=== PATIENT | female | born 1945 | race Caucasian/White ===

== ENCOUNTER 2021-02-04 13:20 | Outpatient (CLI) | payer MEDICARE, OTHER, SELFPAY ==
--- NOTE | 2021-02-04 13:37 | CT_ITS ---
WS: [id number] CT CHEST TECHNIQUE: Noncontrast CT of the chest with coronal and sagittal reformatted images. CLINICAL INFORMATION: LUNG NODULES MULTIPLE COMPARISON: CT chest October 04, 2018 and DLP: 523.[address] scans at [facility] use at least one of these dose optimization techniques: automat ed exposure control; mA and/or kV adjustment per patient size (includes targeted exams where dose is matched to clinical indication); or iterative reconstruction. FINDINGS: Multiple noncalcified pulmonary nodules in both lower lobes and right middle lobe. Largest nodule left lower lobe measuring 5.6 mm slightly enlarged compared to previous where it measured 3.8 mm. Recommend 12 month follow-up. Mild chronic emphysematous changes. No acute pulmonary infiltrates. No focal pneumonia or pleural flu id. Subsegmental atelectasis right lower lobe. No mediastinal or hilar lymphadenopathy. Large esophag eal hiatal hernia. Aortic calcification. Coronary calcification. No mediastinal or hilar lymphadenopa thy. No axillary lymphadenopathy. Right posterior thyroid nodule measuring 1.9 x 1.4 CM. Normal thoracic spine. Adrenal glands are normal. CT/CT chest wo con [id number] IMPRESSION: 1. Multiple noncalcified pulmonary nodules in both lower lobes and right middl e lobe. Largest nodule left lower lobe measuring 5.6 mm slightly enlarged alisa red to previous where it measured 3.8 mm. Recommend 12 month follow-up. 2. Large esophageal hiatal hernia unchanged. 3. Right posterior thyroid nodule measuring 1.9 x 1.4 Cm. This can be further evaluated with ultrasound.
== END 2021-02-04 13:21 | disposition home or self-care (01) ==
LOC: RADWPI 13:28
PROVIDERS: PCP Family Medicine; Visit Provider Nurse Practitioner Family
DX: R91.8 Other nonspecific abnormal finding of lung field (principal); K44.9 Diaphragmatic hernia without obstruction or gangrene; E04.1 Nontoxic single thyroid nodule
CPT/HCPCS: 71250

== ENCOUNTER 2021-04-07 12:44 | Outpatient (CLI) | payer MEDICARE, OTHER, SELFPAY ==
--- NOTE | 2021-04-07 12:50 | US_ITS ---
WS: [id number] ULTRASOUND THYROID TECHNIQUE: Ultrasound of the thyroid. CLINICAL INFORMATION: THYROID NODULE COMPARISON: CT neck [id number] 018 FINDINGS: Thyroid: Echogenic right lower lobe thyroid nodule measures approximately 2.8 x 2.2 x 1.4 cm with a h ypoechoic halo. Associated internal vascularity. Small amount of associated internal heterogeneity or cystic change.Recommend further evaluation with thyroid FNA. Minimal left thyroid tissue. No other visualized nodules. Right thyroid lobe: 4.6 cm x 1.9 cm x 1.7 cm Left thyroid lobe: 2.2 cm x 0.6 cm x 0.9 cm. Isthmus: 0.3 mm. Cervical lymphadenopathy: None. US/US thyroid [id number] IMPRESSION: 1. Echogenic right lower pole thyroid nodule measuring 2.8 2.2 x 1.4 cm with a hypoechoic halo has a suspicious appearance. Recommend further evaluation wit h FNA. 2. Small amount of left-sided thyroid tissue. No other visualized thyroid nodu les.
== END 2021-04-07 12:45 | disposition home or self-care (01) ==
LOC: US 12:47
PROVIDERS: PCP Family Medicine; Visit Provider Nurse Practitioner Family
DX: E04.1 Nontoxic single thyroid nodule (principal)
CPT/HCPCS: 76536

== ENCOUNTER 2021-04-30 12:18 | Outpatient (CLI) | payer MEDICARE, OTHER, SELFPAY ==
--- NOTE | 2021-04-30 12:29 | US_ITS ---
WS: [id number] ULTRASOUND-GUIDED RIGHT THYROID NODULE FNA HISTORY: THYROID MASS Procedure, risks, and complications were explained to the patient. Consent has been obtained. Comparison: 04/07/2021. The skin is cleansed with ChloraPrep and anesthetized with 1% buffered lidocaine. FNA performed with 25 gauge needles. electroneurodiagnostic technologist is present to fix slides. No bleeding or complications d uring the procedure. US/US biopsy thyroid [id number] IMPRESSION: Uncomplicated FNA of a RIGHT hyperechoic thyroid nodule. Final pathology result s pending.
== END 2021-04-30 12:19 | disposition home or self-care (01) ==
LOC: RAD 12:26
PROVIDERS: PCP Family Medicine; Visit Provider Nurse Practitioner Family
DX: E07.89 Other specified disorders of thyroid (principal)
CPT/HCPCS: 10005; 88173; 88305

== ENCOUNTER 2021-05-17 08:00 | Outpatient (CLI) | payer MEDICARE, OTHER, SELFPAY ==
--- NOTE | 2021-05-17 08:06 | MM_ITS ---
WS: [id number] BILATERAL SCREENING DIGITAL MAMMOGRAM WITH CAD HISTORY: SCREENING COMPARISON: 02/12/2018 and 12/17/2015 Bilateral CC and MLO views submitted. Computer aided detection analyzed. Breast composition: There are scattered areas of fibroglandular density. No suspicious masses, microc alcifications or architectural distortion. Stable millimeters nodule upper outer quadrant RIGHT breas t. MM/[place] [id number] IMPRESSION: BI-RADS: 2-Benign FOLLOW UP: 1 Year Follow-up
--- NOTE | 2021-05-17 08:32 | XR_ITS ---
WS: [id number] DEXA (DUAL ENERGY X-RAY ABSORPTIOMETRY) Bone mineral density was performed using a [employer] machine. HISTORY: OSTEOPOROSIS WITHOUT CURRENT PATHOLOGICAL FRACTURE COMPARISON: 10/04/2018 Lumbar spine BMD (L1-L4): 0.830 g/cm2 T score: -2.9 Z score: -0.7 Total hip BMD: Left: 0.621 g/cm2. T score: -3.1 Z score: -1.1 Right: 0.607 g/cm2. T score: -3.2 Z score: -1.2 10 year probability of a major osteoporotic fracture is 21%. Compared to the prior study from 10/04/2018. Lumbar spine bone mineral density has decreased by 3.2%. Bilateral hips bone mineral density has decreased by 7.7%. XR/XR DEXA axial skeleton* [id number] IMPRESSION: OSTEOPOROSIS based upon the WHO classification for females. There has been a si gnificant decrease in bone mineral density in the lumbar spine and hips since t he prior study.
== END 2021-05-17 08:01 | disposition home or self-care (01) ==
LOC: RADSHAW 08:05
PROVIDERS: PCP Nurse Practitioner Family; Visit Provider Nurse Practitioner Family
DX: Z12.31 Encounter for screening mammogram for malignant neoplasm of breast (principal); M81.0 Age-related osteoporosis without current pathological fracture
CPT/HCPCS: 77067; 77080

== ENCOUNTER → 2022-05-06 11:53 | Outpatient (BNVA) | payer MEDICARE, OTHER, SELFPAY | PROVIDERS: PCP Family Medicine; Visit Provider Family Medicine | DX: E78.5 Hyperlipidemia, unspecified (principal); I10 Essential (primary) hypertension; E03.9 Hypothyroidism, unspecified; M81.0 Age-related osteoporosis without current pathological fracture; Z12.39 Encounter for other screening for malignant neoplasm of breast | CPT/HCPCS: 80053; 80061; 84443 ==

== ENCOUNTER 2022-05-20 10:26 | Outpatient (CLI) | payer MEDICARE, OTHER, SELFPAY ==
--- NOTE | 2022-05-20 10:33 | MM_ITS ---
WS: [id number] BILATERAL SCREENING DIGITAL TOMOSYNTHESIS MAMMOGRAM WITH CAD HISTORY: breast cancer screening COMPARISON: 05/17/2021 and 02/12/2018 Bilateral CC and MLO views with tomosynthesis and synthetic mammography submitted. Computer aided det ection analyzed. Breast composition: There are scattered areas of fibroglandular density. No suspicious masses, microc alcifications or architectural distortion. Bilateral breast arterial calcifications. MM/[place] [id number] IMPRESSION: BI-RADS: 2-Benign FOLLOW UP: 1 Year Follow-up
== END 2022-05-20 10:27 | disposition home or self-care (01) ==
LOC: RAD 10:26
PROVIDERS: PCP Family Medicine; Visit Provider Family Medicine
DX: Z12.31 Encounter for screening mammogram for malignant neoplasm of breast (principal)
CPT/HCPCS: 77063; 77067

== ENCOUNTER 2022-06-13 13:47 | Outpatient (CLI) | payer MEDICARE, OTHER, SELFPAY ==
--- NOTE | 2022-06-13 13:30 | XR_ITS ---
WS: [id number] SCREENING DEXA SCAN [facility] CLINICAL INFORMATION: med management COMPARISON: May 17, 2021 FINDINGS: The L1-L4 bone mineral density measures 0.848 g/cm2. This corresponds to a T score score of -2.8 and Z score of -0.6. Left femoral neck bone mineral density measures 0.643 g/cm2. This corresponds to a T score of -2.9 an d Z score of -0.9. Right femoral neck bone mineral density measures 0.612 g/cm2. This corresponds to a T score -3.1of an d Z score of -1.1. Mean femoral neck bone mineral density measures 0.627 g/cm2. This corresponds to a T score of -3.0 an d Z score of -1.0. XR/XR DEXA axial skeleton* [id number] IMPRESSION: Osteoporosis lumbar spine. Osteoporosis femoral necks. Patient's FRAX calculated 10 year probability for major osteoporotic fracture i s 28.5 % and osteoporotic hip fracture is 10.6%. Bone mineralization in the lumbar spine has increased 2.2% since 2020 Bone mineralization femoral necks has increased 2.1% since 2020
== END 2022-06-13 13:48 | disposition home or self-care (01) ==
LOC: RAD 13:48
PROVIDERS: PCP Family Medicine; Visit Provider Family Medicine
DX: M81.0 Age-related osteoporosis without current pathological fracture (principal)
CPT/HCPCS: 77080

== ENCOUNTER → 2022-07-07 11:47 | Outpatient (BNVA) | payer MEDICARE, OTHER, SELFPAY | PROVIDERS: PCP Family Medicine; Visit Provider Family Medicine | DX: E03.9 Hypothyroidism, unspecified (principal) | CPT/HCPCS: 84439; 84443; 84481 ==

== ENCOUNTER 2022-12-02 12:51 | Outpatient (CLI) | payer MEDICARE, OTHER, SELFPAY ==
--- NOTE | 2022-12-02 13:00 | CT_ITS ---
WS: [id number] CT chest wo con [id number] HISTORY: lung nodule f/u TECHNIQUE: Axial imaging performed through the thorax. Coronal and sagittal reformats are submitted. All CT scans at [facility] use at least one of these dose optimization techniques: automated exposure control; mA and/or kV adjustment per patient size (includes targeted exams where dose is mat ched to clinical indication); or iterative reconstruction. CONTRAST: None DLP: 151.71 mGy.cm COMPARISON: 02/04/2021 Lungs and central airway: Chronic emphysema. No new or increasing size of pulmonary nodules. The larg est pulmonary nodule is 5 mm at the LEFT lung base which is stable over multiple prior years. No pneu monia. No endobronchial lesions. Pleura: Normal. No pleural effusion. Heart and pericardium: Normal size heart with no pericardial effusion. Mediastinum and les: No mediastinum or hilar adenopathy. Vessels: Moderate atherosclerotic plaque thoracic aorta. Mild dilatation no aneurysm. Maximum transve rse diameter aorta is 2.4 cm. Mild pulmonary artery enlargement. Chest wall and lower neck: Enlarged RIGHT thyroid lobe. Artifact through the upper thorax. The previo usly described thyroid nodule is not as well visualized today. Upper abdomen: Large hiatal hernia. No adrenal mass. Osseous structures: Moderate increase in thoracic kyphosis. CT/CT chest wo con [id number] IMPRESSION: 1. No new or increasing size of pulmonary nodules. The largest nodule LEFT low er lobe measures 5 mm is stable over multiple years. 2. Chronic emphysema. 3. Large hiatal hernia.
== END 2022-12-02 12:52 | disposition home or self-care (01) ==
LOC: RAD 12:56
PROVIDERS: PCP Family Medicine; Visit Provider Family Medicine
DX: R91.8 Other nonspecific abnormal finding of lung field (principal); J43.9 Emphysema, unspecified; K44.9 Diaphragmatic hernia without obstruction or gangrene
CPT/HCPCS: 71250; 80048; 82306; 84443

== ENCOUNTER → 2023-02-09 12:04 | Outpatient (BNVA) | payer MEDICARE, OTHER, SELFPAY | PROVIDERS: PCP Family Medicine; Visit Provider Family Medicine | DX: E03.9 Hypothyroidism, unspecified (principal); M81.0 Age-related osteoporosis without current pathological fracture | CPT/HCPCS: 82306; 84439; 84443; 84481 ==

== ENCOUNTER → 2023-07-12 13:21 | Outpatient (BNVA) | payer MEDICARE, OTHER, SELFPAY | PROVIDERS: PCP Family Medicine; Visit Provider Family Medicine | DX: E03.9 Hypothyroidism, unspecified (principal); E78.5 Hyperlipidemia, unspecified; I10 Essential (primary) hypertension | CPT/HCPCS: 80053; 80061; 84443 ==

== ENCOUNTER → 2023-11-16 12:05 | Outpatient (BNVA) | payer MEDICARE, OTHER, SELFPAY | PROVIDERS: PCP Family Medicine; Visit Provider Family Medicine | DX: E03.9 Hypothyroidism, unspecified (principal) | CPT/HCPCS: 84443 ==

== ENCOUNTER 2025-02-06 08:41 | Emergency (ER) | payer MEDICARE, OTHER, SELFPAY ==
--- NOTE | 2025-02-06 09:03 | W.ED.GENADLT ---
HPI - General Adult General: Chief complaint: Weakness Stated complaint: reaction to medicine Time Seen by Provider: 02/06/25 08:47 History of Present Illness: 79-year-old female presents emergency room with complaints of having a reaction to medication. She states she has chronic teeth pain she took a single 200 mg tablet of Advil gelcaps this morning and then had some nausea no vomiting felt dizzy and weak. She presents emergency room she has no focal neurologic deficits. She denies any chest pain or any shortness of breath she did not had any vomiting. The tooth pain has been going on for some time has been chronic. She denies any other symptoms. She has not had any other medication changes recently. Associated symptoms: Deny chest pain, dyspnea or rash Related Data Home Medications ?Medication ?Instructions ?Recorded ?Confirmed cholecalciferol (vitamin D3) 25 25 mcg PO DAILY 11/15/22 02/06/25 mcg (1,000 unit) capsule Colace Gummies 2 ea PO DAILY 02/06/25 02/06/25 amlodipine 5 mg tablet 5 mg PO DAILY 02/06/25 02/06/25 atorvastatin 40 mg tablet 40 mg PO DAILY 02/06/25 02/06/25 ibuprofen 200 mg tablet (Advil) 200 mg PO Q6H PRN Pain 02/06/25 02/06/25 levothyroxine 200 mcg tablet 200 mcg PO DAILY 02/06/25 02/06/25 metoclopramide HCl 5 mg tablet 5 mg PO DAILY PRN Nausea And 02/06/25 02/06/25 Vomiting montelukast 10 mg tablet 10 mg PO DAILY 02/06/25 02/06/25 Previous Rx's ?Medication ?Instructions ?Recorded aspirin 81 mg tablet,delayed 81 mg PO DAILY 90 days #90 tabs 10/17/22 release (Adult Aspirin Regimen) multivitamin 1 tab PO DAILY 90 days #90 tabs 10/17/22 Allergies Allergy/AdvReac Type Severity Reaction Status Date / Time Penicillins Allergy Urticaria Unverified 07/12/23 12:57 Sulfa (Sulfonamide Allergy Urticaria Verified 07/12/23 12:57 Antibiotics) Tetanus Vaccines and Toxoid Allergy Urticaria Verified 07/12/23 12:57 Review of Systems Const: Denies: fever(s) or chills Card: Denies: chest pain Resp: Denies: dyspnea GI: Denies: abdominal pain : Denies: dysuria, urinary frequency or urinary urgency Musc: Denies: neck pain or back pain Skin/Breast: Denies: rash PFSH ED PFSH: Medical History Hiatal hernia Migraines Thyroid nodule Lung nodule, multiple stable for multiple years Hyperlipidemia Asthma, well controlled Osteoporosis Hypothyroidism Hypertension Surgical History History of urinary tract surgery History of tonsillectomy History of hysterectomy Family History Mother Diabetes Hypertension Grandfather Diabetes Stroke Brother Lung disease Psychiatric illness schizophrenia Social History Smoking and tobacco/nicotine status: former use of tobacco/nicotine Alcohol intake: never Substance/Drug Use: never Lives independently: Yes Household members: children Marital status: / Physical Exam Const: COMMON NORMALS: no acute distress GENERAL APPEARANCE: cooperative and comfortable ORIENTATION/CONSCIOUSNESS: Yes awake, Yes oriented to person, Yes oriented to place and Yes oriented to time HENMT: COMMON NORMALS: normocephalic, atraumatic and hearing grossly normal bilaterally HEAD & SCALP: normocephalic and atraumatic Resp: COMMON NORMALS: normal respiratory effort, No retractions, No use of accessory muscles and clear to auscultation bilaterally AUSCULTATION: clear to auscultation bilaterally Cardio: COMMON NORMALS: regular rate, regular rhythm and No murmurs present (Cardio) RATE: regular rate RHYTHM: regular rhythm GI: COMMON NORMALS: Soft to palpation and No hepatosplenomegaly present AUSCULTATION: Yes normoactive bowel sounds PALPATION: Yes Soft to palpation, No Tenderness to palpation present (GI), No Guarding due to palpation present (GI) and Yes No hepatosplenomegaly present Extremity: COMMON NORMALS: normal to inspection, capillary refill normal, no clubbing, cyanosis or edema, no calf tenderness and no pedal edema Neuro: SENSORIUM/ORIENTATION: Yes oriented to person, Yes oriented to place and Yes oriented to time Skin: COMMON NORMALS: no rashes or lesions noted GENERAL SKIN EXAM: no rashes or lesions noted Course Vital Signs: Vital signs: Vital Signs Temperature 98.1 F 02/06/25 09:05 Pulse Rate 74 02/06/25 11:46 Respiratory Rate 18 02/06/25 09:05 Blood Pressure 117/53 02/06/25 11:46 Pulse Oximetry 100 02/06/25 11:46 Oxygen Delivery Me thod Room Air 02/06/25 11:03 MDM - General Adult Medical Decision Making No significant finding. Patient denies chest pain. EKG unremarkable. Patient has no focal neurologic deficits on her laboratory tests do not have clinically significant abnormalities. No emergent condition at this time will discharge home discussed her do not believe this is an allergic reaction side effect from medication some of this may be she is having some cognitive decline. At 1 point she is complaining of severe headache. Going to give her something for it later she said she did not have a headache at all did not really want anything. Ultimately she is to discharged home with her . Follow-up with primary care. Medical Records I reviewed the patient's medical records. Lab Data I reviewed the patient's lab results. 02/06/25 09:14 02/06/25 09:14 Laboratory Results WBC 3.82 10^3/uL (3.29-11.43) 02/06/25 09:14 RBC 3.84 10^6/uL (3.85-5.65) L 02/06/25 09:14 Hgb 11.30 g/dL (11.27-16.99) 02/06/25 09:14 Hct 35.0 % (36-47) L 02/06/25 09:14 MCV 91.1 fl (85-98) 02/06/25 09:14 MCH 29.4 pg (27-33) 02/06/25 09:14 MCHC 32.3 g/dL (30-55) 02/06/25 09:14 RDW 13.7 % (12.1-15.1) 02/06/25 09:14 Plt Count 233 10^3/cmm (157-399) 02/06/25 09:14 MPV 9.9 fL (7.4-10.4) 02/06/25 09:14 Neut % (Auto) 37.6 % 02/06/25 09:14 Lymph % (Auto) 52.4 % 02/06/25 09:14 [place] % (Auto) 5.8 % 02/06/25 09:14 Eos % (Auto) 3.4 % 02/06/25 09:14 Baso % (Auto) 0.5 % 02/06/25 09:14 Neut # (Auto) 1.44 10^3/uL (1.8-7.7) L 02/06/25 09:14 Lymph # (Auto) 2.0 10^3/uL (0.8-4.8) 02/06/25 09:14 [place] # (Auto) 0.2 10^3/uL (0.2-0.9) 02/06/25 09:14 Eos # (Auto) 0.1 10^3/uL (0.0-0.8) 02/06/25 09:14 Baso # (Auto) 0.0 10^3/uL (0.0-0.1) 02/06/25 09:14 Nucleated RBC % (auto) 0 % 02/06/25 09:14 Nucleated RBCs # 0.0 /100WBC 02/06/25 09:14 Sodium 141 mmol/L (136-145) 02/06/25 09:14 Potassium 3.4 mmol/L (3.5-5.1) L 02/06/25 09:14 Chloride 102 mmol/L (98-107) 02/06/25 09:14 Carbon Dioxide 22 mmol/L (22-29) 02/06/25 09:14 Anion Gap 20.4 (5-19) H 02/06/25 09:14 BUN 18 mg/dL (8-23) 02/06/25 09:14 Creatinine 0.7 mg/dL (0.5-0.9) 02/06/25 09:14 GFR Calculation Not Reportable 02/06/25 09:14 Glucose 189 mg/dL (65-115) H 02/06/25 09:14 Calculated Osmolality 299 mOsm/kg (285-295) H 02/06/25 09:14 Calcium 8.6 mg/dL (8.5-10.5) 02/06/25 09:14 Total Bilirubin 0.4 mg/dL (0.15-1.2) 02/06/25 09:14 AST 19 U/L (0-32) 02/06/25 09:14 ALT 14 U/L (0-33) 02/06/25 09:14 Alkaline Phosphatase 101 U/L (35-105) 02/06/25 09:14 Total Protein 6.2 g/dL (6.6-8.7) L 02/06/25 09:14 Albumin 3.6 g/dL (3.5-5.2) 02/06/25 09:14 Globulin 2.6 g/dL (1.3-4.6) 02/06/25 09:14 All radiology interpretation(s) finalized by discharge EKG Data EKG 1: Interpretation: EKG 02/06/2025 857 normal sinus rhythm rate of 60 [place] interval 153 QTc 468 no acute EKG changes noted no ST elevation no ST depression or T wave inversion. Discharge Plan Discharge Patient Disposition: Home Clinical Impression: Tooth pain Condition: Stable Prescriptions: No Action aspirin [Adult Aspirin Regimen] 81 mg tablet,delayed release (DR/EC) 81 mg PO DAILY 90 Days Qty: 90 0RF multivitamin Tablet 1 tab PO DAILY 90 Days Qty: 90 0RF cholecalciferol (vitamin D3) 25 mcg (1,000 unit) capsule 25 mcg PO DAILY atorvastatin 40 mg tablet 40 mg PO DAILY amlodipine 5 mg tablet 5 mg PO DAILY metoclopramide HCl 5 mg tablet 5 mg PO DAILY PRN (Reason: Nausea And Vomiting) montelukast 10 mg tablet 10 mg PO DAILY levothyroxine 200 mcg tablet 200 mcg PO DAILY ibuprofen [Advil] 200 mg Tablet 200 mg PO Q6H PRN (Reason: Pain) Colace Gummies 2 ea PO DAILY Discharge Orders: Discharge ED (Routine); Ordered 02/06/25 Ordered By: Johnson Wilson Referrals: Rosetta Kent MD [Primary Care Provider, Family Practice] Discharge Diet: Usual diet Discharge Activity: Increase activity as tolerated Patient Instructions: Opioid Safety, Pain Management Activity Restrictions/Additional Instructions: Thank you for choosing [facility] for your healthcare needs today. It is very important that you follow up as instructed or that you return to the Emergency Department should you have concerns or if your condition changes or worsens in any way. You are seen in the emergency room after complaining of feeling lightheaded dizzy and nauseous after taking an Advil. There is no sign of acute allergic reaction your laboratory tests EKG were normal. Your potassium is slightly low but not clinically significant. This can be monitored further by your primary care doctor. No recommended changes in your medications at this time. There is no evidence you had an actual allergic reaction to the medication at this time. Print Language: Polish Coding Level of Care Code ED School Age Program Teacher for David Jeronimo
[2025-02-06 09:05] VITALS: BP 118/58; PULSE 64; RESP 18; TEMP 36.7; O2SAT 100; BMI 20.9
--- NOTE | 2025-02-06 09:19 | ECG_ITS ---
[facility] Test Date: 2025-02-06 Pat Name: Kathya Cruz Department: Room: Gender: Female Log Grader: : 1945 Requested By: Johnson Kern Order Number: [id number] Gold MD: Rolando Roche M.D. Measurements Intervals [place] Rate: 60 P: 41 [place]: 153 QRS: 72 QRSD: 97 T: 62 QT: 457 QTc: 460 Interpretive Statements SINUS RHYTHM No previous ECG available for comparison Electronically Signed On 02-07-2025 14:58:27 CDT by Rolando Roche M.D. [id number]
[2025-02-06 09:21] LABS: Basophils % 0.5 %; Eosinophils # 0.1 10^3/uL (0.0-0.8); Eosinophils % 3.4 %; Lymphocytes % 52.4 %; Mean Corpuscular HGB Conc 32.3 g/dL (30-55); Mean Corpuscular Hemoglobin 29.4 pg (27-33); Mean Corpuscular Volume 91.1 fl (85-98); Mean Platelet Volume 9.9 fL (7.4-10.4); Monocytes # 0.2 10^3/uL (0.2-0.9); Monocytes % 5.8 %; Neutrophils # 1.44 10^3/uL (1.8-7.7); Neutrophils % 37.6 %; Nucleated Red Blood Cells % 0 %; Platelet Count 233 10^3/cmm (157-399); Red Blood Count 3.84 10^6/uL (3.85-5.65); Red Cell Distribution Width 13.7 % (12.1-15.1); White Blood Count 3.82 10^3/uL (3.29-11.43)
[2025-02-06 09:36] LABS: Alanine Aminotransferase 14 U/L (0-33); Albumin Level 3.6 g/dL (3.5-5.2); Alkaline Phosphatase 101 U/L (35-105); Anion Gap 20.4 (5-19); Aspartate Amino Transferase 19 U/L (0-32); Blood Urea Nitrogen 18 mg/dL (8-23); Calcium 8.6 mg/dL (8.5-10.5); Carbon Dioxide 22 mmol/L (22-29); Chloride 102 mmol/L (98-107); Creatinine Clr Calc Pharmacy 43.8571; Globulin 2.6 g/dL (1.3-4.6); Glucose 189 mg/dL (65-115); Osmolality Calculated 299 mOsm/kg (285-295); Potassium 3.4 mmol/L (3.5-5.1); Sodium 141 mmol/L (136-145); Total Bilirubin 0.4 mg/dL (0.15-1.2); Total Protein 6.2 g/dL (6.6-8.7)
[2025-02-06 10:17] VITALS: BP 104/38; PULSE 71; O2SAT 97
[2025-02-06 11:03] VITALS: BP 111/71; PULSE 75; O2SAT 97
[2025-02-06 11:46] VITALS: BP 117/53; PULSE 74; O2SAT 100
== END 2025-02-06 11:47 | disposition home or self-care (01) ==
PROVIDERS: Emergency Provider Family Medicine; PCP Family Medicine
DX: K08.89 Other specified disorders of teeth and supporting structures (principal); G89.29 Other chronic pain; R53.1 Weakness; E03.9 Hypothyroidism, unspecified; I10 Essential (primary) hypertension; E78.5 Hyperlipidemia, unspecified; Z79.899 Other long term (current) drug therapy; Z79.82 Long term (current) use of aspirin; Z79.890 Hormone replacement therapy; Z87.891 Personal history of nicotine dependence
CPT/HCPCS: 36415; 80053; 85025; 93005; 99284

== ENCOUNTER → 2025-02-17 08:51 | Outpatient (BNVA) | payer MEDICARE, OTHER, SELFPAY | PROVIDERS: PCP Family Medicine; Visit Provider Family Medicine | DX: E03.9 Hypothyroidism, unspecified (principal); E78.5 Hyperlipidemia, unspecified | CPT/HCPCS: 80061; 84443 ==

== ENCOUNTER → 2025-04-16 13:18 | Outpatient (BNVA) | payer MEDICARE, OTHER, SELFPAY | PROVIDERS: PCP Family Medicine; Visit Provider Family Medicine | DX: E04.1 Nontoxic single thyroid nodule (principal); E03.9 Hypothyroidism, unspecified; R25.2 Cramp and spasm | CPT/HCPCS: 80048; 83735; 84443 ==